=== PATIENT | female | born 1960 ===

== ENCOUNTER 2021-07-06 12:15 | Inpatient (IN) | payer OTHER ==
[~2021-07-06] VITALS: Ht 157.5 cm; Wt 55.8 kg
[2021-07-06] MEDS ORDERED: FENOFIBRATE150 MG PO (16:46)
[2021-07-06] MEDS ORDERED: BYSTOLIC2.5 MG PO (16:46)
[2021-07-06] MEDS ORDERED: LIPITOR20 MG PO (16:47)
[2021-07-06] MEDS ORDERED: BONIVA150 MG PO (16:47)
[2021-07-06] MEDS ORDERED: CLONAZEPAM2 M1 PO (16:48)
[2021-07-06] MEDS ORDERED: EFFEXOR XR75 MG PO (16:48)
[2021-07-09] MEDS ORDERED: FENOFIBRIC ACI135 MG (10:35)
[2021-07-09] MEDS ORDERED: FLUVOXAMINE MAL50 MG (10:35)
[2021-07-09] MEDS ORDERED: LORAZEPAM2 MG (10:35)
[2021-07-09] MEDS ORDERED: LINZESS145 MCG (10:36)
[2021-07-09] MEDS ORDERED: METHOTREXATE2.5 MG (10:36)
[2021-07-09] MEDS ORDERED: FOLIC ACID1 MG (10:36)
[2021-07-09] MEDS ORDERED: ESTRADIOL1 EAC5 (10:36)
[2021-07-09] MEDS ORDERED: DICYCLOMINE HCL10 MG (10:36)
[2021-07-09] MEDS ORDERED: FLONASE16 GM (10:36)
[2021-07-09] MEDS ORDERED: CLOTRIMAZOLE-BE15 G1 (10:36)
== END 2021-07-13 18:59 | disposition home or self-care (01) | DRG 331 ==
LOC: O/R 07-09 08:35 → SURH 07-09 08:35
PROVIDERS: ADMIT Colon & Rectal Surgery; ATTEND Colon & Rectal Surgery
PROC: 0DBP4ZZ Excision of Rectum, Percutaneous Endoscopic Approach (ICD-10-PCS; 2021-07-09)
PROC: 0DJD8ZZ Inspection of Lower Intestinal Tract, Via Natural or Artificial Opening Endoscopic (ICD-10-PCS; 2021-07-09)
PROC: 4A1BXSH Monitoring of Gastrointestinal Vascular Perfusion using Indocyanine Green Dye, External Approach (ICD-10-PCS; 2021-07-09)
PROC: 0DTN4ZZ Resection of Sigmoid Colon, Percutaneous Endoscopic Approach (ICD-10-PCS; principal; 2021-07-09 11:30)
DX: K57.32 Diverticulitis of large intestine without perforation or abscess without bleeding (principal); R10.32 Left lower quadrant pain; K63.89 Other specified diseases of intestine; I10 Essential (primary) hypertension; Z20.822 Contact with and (suspected) exposure to COVID-19

== ENCOUNTER 2021-12-09 11:59 | Emergency (ER) | payer OTHER ==
[~2021-12-09] VITALS: Ht 157.5 cm; Wt 57.2 kg
[~2021-12-09 11:59] MED LIST: BONIVA150 MG PO; BYSTOLIC2.5 MG PO; CLONAZEPAM2 M1 PO; CLOTRIMAZOLE-BE15 G1; DICYCLOMINE HCL10 MG; EFFEXOR XR75 MG PO; ESTRADIOL1 EAC5; FENOFIBRATE150 MG PO; FENOFIBRIC ACI135 MG; FLONASE16 GM; FLUVOXAMINE MAL50 MG; FOLIC ACID1 MG; LINZESS145 MCG; LIPITOR20 MG PO; LORAZEPAM2 MG; METHOTREXATE2.5 MG
== END 2021-12-09 21:55 | disposition home or self-care (01) ==
LOC: ER 11:59
DX: R10.32 Left lower quadrant pain (principal); Z88.1 Allergy status to other antibiotic agents; Z88.0 Allergy status to penicillin; Z98.890 Other specified postprocedural states; K57.30 Diverticulosis of large intestine without perforation or abscess without bleeding; Z20.822 Contact with and (suspected) exposure to COVID-19